=== PATIENT | male | born 1930 | race Caucasian/White ===

== ENCOUNTER 2016-09-22 06:29 | Day surgery (SDC) | payer MEDICARE, OTHER ==
[2016-09-21 12:20] LABS: BASOPHILS 0.4 %; BASOPHILS ABSOLUTE 0.03 10/3/uL (0.0-0.16); EOSINOPHILS 4.8 %; EOSINOPHILS ABSOLUTE 0.35 10/3/uL (0.0-0.53); HEMOGLOBIN 12.9 g/dL (13.6-17.8); IMMATURE GRANULOCYTES 0.3 %; IMMATURE GRANULOCYTES ABSOLUTE 0.02 10/3/uL (0.0-0.11); LYMPHOCYTES 15.2 %; LYMPHOCYTES ABSOLUTE 1.11 10/3/uL (0.67-4.30); MEAN CORPUS HGB CONC 34.3 g/dL (32.0-36.0); MEAN CORPUSCULAR HEMOGLOB 33.3 pg (26.0-34.0); MEAN CORPUSCULAR VOLUME 97.2 fL (80-100); MEAN PLATELET VOLUME 8.1 fL (9.2-13.0); MONOCYTES 9.7 %; MONOCYTES ABSOLUTE 0.71 10/3/uL (0.21-1.20); NEUTROPHILS 69.6 %; NEUTROPHILS ABSOLUTE 5.09 10/3/uL (2.02-8.40); PLATELET COUNT 373 10/3/uL (150-400); RBC DISTRIBUTION WIDTH 13.3 % (12.0-16.0); RED CELL COUNT 3.87 10/6/uL (4.7-6.1); WHITE BLOOD CELLS 7.3 10/3/uL (4.5-10.5)
[2016-09-21 12:23] LABS: HEMATOCRIT 37.6 % (40.0-51.0); MANUAL DIFF NO %
[2016-09-21 12:32] LABS: ALBUMIN 3.7 G/DL (3.5-5.0); BUN (BLOOD UREA NITROGEN) 14 MG/DL (6-23); CALCIUM, SERUM 9.5 MG/DL (8.5-10.4); CHLORIDE, SERUM 106 MMOL/L (96-112); CO2 (CARBON DIOXIDE) 27 MMOL/L (24-34); CREATININE 1.12 MG/DL (0.70-1.30); GFR AFRICAN AMERICAN 70 ML/MIN (>=60); GFR NON AFRICAN AMERICAN 60 ML/MIN (>=60); GLOBULIN 3.6 G/DL (2.5-4.1); SGOT(AST) 20 U/L (5-40); SGPT(ALT) 19 U/L (5-65); SODIUM, SERUM 141 MMOL/L (135-148); TOTAL PROTEIN 7.3 G/DL (6.0-8.5)
[2016-09-21 12:33] LABS: ALKALINE PHOSPHATASE 107 U/L (45-117); GLUCOSE, SERUM 133 MG/DL (60-99); POTASSIUM, SERUM 3.6 MMOL/L (3.5-5.3); TOTAL BILIRUBIN 0.4 MG/DL (0-1.2)
--- NOTE | ~2016-09-22 | OP ---
Record Of Operation [facility] [address] [place]. [address] NAME: IRIS BOYER : 34 STATUS : REG [facility] [place] PAT#: [id number] AGE: 86 ADM/REG DATE : 09/22/16 MR#: [id number] REPORT SERV DATE: 09/22/16 DICTATED BY: PRINCE BAILEY III DATE: 09/22/16 REPORT STATUS : Draft TRANSCRIBED BY: MODL DATE: 09/22/16 DATE OF PROCEDURE: 09/22/2016 PREOPERATIVE DIAGNOSIS: Symptomatic recurrent right inguinal hernia. POSTOPERATIVE DIAGNOSIS: Symptomatic recurrent right inguinal hernia. PROCEDURE: Open repair, Andrea tension-free, of right inguinal hernia with Prolene mesh. SURGEON: Prince Bailey M.D. ANESTHESIA: Spinal with sedation. COMPLICATIONS: None. ESTIMATED BLOOD LOSS: Less than 5 mL. SPECIMENS: Hernia sac. DRAINS: None. LAP AND SPONGE COUNT: Correct x3. BRIEF HISTORY: This 86-year-old male presented with a symptomatic recurrent right inguinal hernia. It was felt that open repair of the hernia was indicated. This procedure, the risks, benefits, and alternatives, including but not limited to the risk for bleeding, infection, pain, swelling, scarring or deformity to the area, seroma formation, hematoma formation, recurrence of the hernia, nerve injury with chronic paresthesia or pain in the thigh, scrotum, or groin, chronic neuralgia or neuroma, and unforeseen complications including deep venous thrombosis, pulmonary embolus, myocardial infarction, stroke, pneumonia, and , were explained to the patient prior to the surgery. The expected length of recovery was explained. The patient's questions were answered. He understood the risks and agreed to the surgery as planned. PROCEDURE IN DETAIL: After being properly identified and after discussing risks of surgery with him again in the preoperative area, and after identifying the hernia with him in the preoperative area, the patient was taken to the operating room. He was placed on the operating room table. Spinal anesthesia was administered. After assuring adequate level of anesthesia and after an appropriate "time-out" per JCAHO standards, a small oblique incision was made in the right groin from the pubic tubercle medially towards the anterior superior iliac spine laterally. The incision was continued through the subcutaneous tissue. Hemostasis was controlled with cautery. The external oblique fascia was identified. This fascia was opened along the direction of its fibers so as to open the external inguinal ring. There was extensive scarring in the area from the patient's previous surgery. Using sharp dissection, the underlying ilioinguinal nerve was identified. It was carefully Record Of Operation [facility] [address] [place]. [address] NAME: IRIS BOYER : 34 STATUS : REG [facility] [place] PAT#: [id number] AGE: 86 ADM/REG DATE : 09/22/16 MR#: [id number] REPORT SERV DATE: 09/22/16 DICTATED BY: PRINCE BAILEY III DATE: 09/22/16 REPORT STATUS : Draft TRANSCRIBED BY: DONI DATE: 09/22/16 isolated and protected to one side. Using sharp dissection, the spermatic cord and its contents were mobilized from the floor of the canal and a Jeannie drain placed beneath it. There was noted to be indirect hernia sac dissecting along the spermatic cord. There was also noted to be a direct hernia in the floor of the canal. Using sharp dissection, the hernia sac was dissected free from the spermatic cord. There was a fairly large hernia sac. The hernia sac was dissected down to the internal ring. The hernia sac was opened. The abdominal contents were reduced. The hernia sac was ligated with a 2-0 silk pursestring and doubly ligated with 2-0 silk suture. The hernia sac was amputated above these sutures. The fascial defect in the floor of the canal was then reapproximated with interrupted 3-0 silk sutures which were placed between shelving edge of the inguinal ligament laterally and the internal oblique and transversalis fascia medially. This resulted in good closure of the defect with minimal tension. A Prolene mesh was then selected and cut to the appropriate size for the floor of the canal. A slit was made in the mesh laterally to incorporate the spermatic cord. The mesh was then secured to the floor of the canal with a running 2-0 Prolene suture which was placed between the edge of the mesh and shelving edge of the inguinal ligament laterally and the internal oblique and transversalis fascia medially. The mesh was secured lateral to the cord as well. Upon completion of this, mesh lay nicely on the floor of the canal, was not twisted or kinked in anyway and was not under any tension. A small finger could be placed through the internal ring so that the spermatic vessels were not been unduly tightened or narrowed. Hemostasis was assured. The external oblique fascia was closed with running 2-0 silk suture. The subcutaneous tissue was closed with running 3-0 chromic suture. The skin was closed with running subcuticular 4-0 Monocryl stitch. The incision was injected with 0.5% Marcaine. Dressings were applied. The patient was taken to the recovery room in stable condition. He tolerated the procedure well. His family was informed results of surgery. The patient was discharged when stable and comfortable, able to void and ambulate. His family was advised that they should keep his wound clean and dry for [address] hours[address] He should not drive for three to four days after surgery or while using narcotics, and that he should resume his usual medications and he should not perform any heavy lifting for 5 to 6 weeks. He has been asked to return in two weeks for followup or sooner if any fever, chills, wound drainage, or other problems prior to that time. He was given a prescription for Percocet 7.5 one t.i.d., #12, as needed for pain, which he was advised not to use while driving. RHJ/MODL Prince Bailey III, M.D. / [id number] CC: Jam Yarbrough III, M.D.
--- NOTE | ~2016-09-22 | PREOPHP ---
PreOp History and Physical [address] [place]. [address] NAME: IRIS BOYER : 34 [place] : [place] [facility] [place] [id number] AGE: 86 ADM/REG DATE : MR#: [id number] REPORT SERV DATE: 09/22/16 DICTATED BY: PRINCE BAILEY III DATE: 08/24/16 REPORT STATUS : Draft TRANSCRIBED BY: MODAdam DATE: 08/24/16 HISTORY OF PRESENT ILLNESS: This 86-year-old male comes to the operating room for open repair of a symptomatic right inguinal hernia. The patient has a right inguinal hernia which is symptomatic in terms of local pain and discomfort. The patient has had no nausea, vomiting, or obstructive symptoms. He comes now for open repair of this hernia. PAST MEDICAL HISTORY: 1. Hyperlipidemia. 2. COPD. PAST SURGICAL HISTORY: Includes laparoscopic cholecystectomy for gangrenous gallbladder disease and bilateral knee replacement. MEDICATIONS: Aspirin, Tylenol, Prilosec, vitamins, Crestor, nifedipine, Travatan. SOCIAL HISTORY: The patient has a previous history of tobacco abuse. He has no history of alcohol use. FAMILY HISTORY: Unremarkable. ALLERGIES: SULFA. REVIEW OF SYSTEMS: The patient's 14-point review of systems is otherwise unremarkable. PHYSICAL EXAMINATION: GENERAL: This is a male, in no acute distress. He is alert and oriented x3. HEENT: Unremarkable. Cranial nerves II through XII are normal. LUNGS: Clear. CARDIAC: Normal. ABDOMEN: Soft, nontender. The right groin has a moderate-sized inguinal hernia. This hernia is reducible. The left groin is normal. EXTREMITIES: Normal. ASSESSMENT: An 86-year-old male with, 1. Symptomatic right inguinal hernia. 2. Chronic obstructive pulmonary disease. 3. History of tobacco abuse. 4. Hyperlipidemia. PLAN: The patient comes to the operating room now for open right inguinal hernia repair. This procedure, the risks, the benefits and alternatives, including not limited to the risk for bleeding, infection, pain, swelling, scarring or deformity to the area, seroma formation, hematoma formation, recurrence of the hernia, nerve injury, chronic paresthesia; pain in the thigh, scrotum, or groin; chronic neuralgia or neuroma, and unforeseen PreOp History and Physical [address] [place]. [address] NAME: IRIS BOYER : 34 STATUS : PRE [facility] PAT#: [id number] AGE: 86 ADM/REG DATE : MR#: [id number] REPORT SERV DATE: 09/22/16 DICTATED BY: PRINCE BAILEY III DATE: 08/24/16 REPORT STATUS : Draft TRANSCRIBED BY: DONI DATE: 08/24/16 complications including deep venous thrombosis, pulmonary embolus, myocardial infarction, stroke, pneumonia, and , have been explained to the patient prior to surgery. The expected length of recovery has been explained. The patient's questions have been answered. He understands the risks and agrees to surgery as planned. MARINO/DONI Prince Bailey III, M.D. / [id number]
[~2016-09-22 06:29] MED LIST: ADALAT CC30 MG PO; ASAB PO; CENTRUM PO; CRESTOR40 MG PO; PERCOCET1 TA2 PO; PRILO PO; STOOL SOFTEN240 MG PO; TRAVATAN Z0.004 % OPH; TYLENOL PM PO; VITAMIN B-122500 MCG SL
== END 2016-09-22 13:26 | disposition home or self-care (01) ==
LOC: SDC 06:29
PROVIDERS: Surgery
PROC: 0YU50JZ Supplement Right Inguinal Region with Synthetic Substitute, Open Approach (ICD-10-PCS; principal; 2016-09-22 08:00)
DX: K40.91 Unilateral inguinal hernia, without obstruction or gangrene, recurrent (principal); E78.5 Hyperlipidemia, unspecified; J44.9 Chronic obstructive pulmonary disease, unspecified; E78.00 Pure hypercholesterolemia, unspecified; H40.9 Unspecified glaucoma; G47.33 Obstructive sleep apnea (adult) (pediatric); K21.9 Gastro-esophageal reflux disease without esophagitis; Z90.49 Acquired absence of other specified parts of digestive tract; Z96.653 Presence of artificial knee joint, bilateral; Z79.82 Long term (current) use of aspirin; Z79.899 Other long term (current) drug therapy; Z88.2 Allergy status to sulfonamides; Z98.890 Other specified postprocedural states
CPT/HCPCS: 71020; 80053; 85025; 88302; 93005; A9270-GY; C1781; J0690; J2250; J2405; J3010